=== PATIENT | male | born 1950 | race Caucasian/White ===

== ENCOUNTER 2020-05-14 08:35 | Outpatient (CLI) | payer MEDICARE, MEDICAID, SELFPAY ==
--- NOTE | ~2020-05-14 | XR_ITS ---
EXAMINATION: XR shoulder RT min 2V EXAM DATE: 05/14/2020 09:22 INDICATION: No known recent injury provided at this time. Pain of the right shoulder. TECHNIQUE: The following right shoulder projections obtained: frontal projection with internal rotati on, frontal projection with external rotation, Grashey, and scapular Y view (4+ views). Correlation i s made to chest x-ray 07/22/2014. FINDINGS: There is somewhat linear opacity rating out from the right hilum, could be atelectasis or c ancer. This is new compared to 2013. Dedicated chest x-ray is indicated for better evaluation. There is moderate right glenohumeral, mild acromioclavicular primary osteoarthritis. There are no acu te fractures or dislocations identified. There is no subcutaneous gas. The soft tissue is unremarka ble. There are no radiopaque foreign bodies. IMPRESSION: 1. Right upper lobe mass or atelectasis; recommend PA/lateral chest x-rays. 2. Moderate right glenohumeral osteoarthritis. Reviewed, dictated and finalized at location A.
--- NOTE | ~2020-05-14 | XR_ITS ---
EXAMINATION: XR shoulder LT min 2V EXAM DATE: 05/14/2020 09:22 INDICATION: Left shoulder pain. TECHNIQUE: The following left shoulder projections obtained: frontal projection with internal rotatio n, frontal projection with external rotation, Grashey, and scapular Y view (4+ views). There is no p rior study for comparison. FINDINGS: No evidence of left shoulder rotator cuff calcific tendinosis. There is severe glenohumer al, mild acromioclavicular joint primary osteoarthritis. There are no acute fractures or dislocations identified. There is no subcutaneous gas. The soft tissue is unremarkable. There are no radiopaq ue foreign bodies. IMPRESSION: Severe left glenohumeral osteoarthritis. Reviewed, dictated and finalized at location A.
== END 2020-05-14 08:36 | disposition home or self-care (01) ==
LOC: CHSIMG 08:40
PROVIDERS: PCP Family Medicine; Visit Provider Family Medicine
DX: M25.512 Pain in left shoulder (principal); M25.511 Pain in right shoulder
CPT/HCPCS: 73030

== ENCOUNTER 2020-06-09 07:48 | Outpatient (CLI) | payer MEDICARE, MEDICAID, SELFPAY ==
--- NOTE | ~2020-06-09 | XR_ITS ---
XR shoulder RT min 2V DATE: 06/09/2020 08:13 INDICATION: Right shoulder pain. No known injury. TECHNIQUE: 3 views COMPARISON: 05/14/2020 right shoulder FINDINGS: Diffuse osteopenia. There is severe osteoarthritis at the right glenohumeral joint. No fracture or dislocation, periostea l reaction or bone destruction of the right shoulder is evident. There is dextroscoliosis and degenerative change of the thoracic spine. There are patchy right mid and bilateral lower lung zone infiltrates and/or atelectasis. IMPRESSION: Patchy right mid and bilateral lower lung infiltrates and/atelectasis Severe osteoarthritis at right glenohumeral joint Diffuse osteopenia Reviewed, dictated and finalized at location A. IMPRESSION: Patchy right mid and bilateral lower lung infiltrates and/atelectas is Severe osteoarthritis at right glenohumeral joint Diffuse osteopenia
== END 2020-06-09 07:49 | disposition home or self-care (01) ==
LOC: CHSIMG 07:50
PROVIDERS: PCP Family Medicine; Visit Provider Orthopaedic Surgery
DX: M25.511 Pain in right shoulder (principal)
CPT/HCPCS: 73030

== ENCOUNTER 2020-07-31 10:15 | Emergency (ER) | payer MEDICARE, MEDICAID, SELFPAY ==
--- NOTE | ~2020-07-31 | XR_ITS ---
XR chest 1V portable DATE: 07/31/2020 11:42 INDICATION: Shortness of breath TECHNIQUE: Portable AP chest on 07/31/2020 at 1133 hours COMPARISON: 09/19/2017 AP and lateral chest FINDINGS: There is patchy infiltrate in the right mid and lower lung zone and left lower lung zones s uggesting bilateral pneumonia. Emphysematous changes are noted. Heart size is likely within normal range. There is a probable hiatal hernia. Severe osteoarthritic change at the glenohumeral joints. Diffuse osteopenia. There is dextroscoliosis and degenerative change of the thoracic spine. IMPRESSION: Patchy infiltrates of right mid and both lower lung zones Emphysema Reviewed, dictated and finalized at location B. TAL BUSINESS ANALYST
--- NOTE | ~2020-07-31 | XR_ITS ---
XR cervical spine 1V DATE: 07/31/2020 11:42 INDICATION: Neck pain TECHNIQUE: Lateral and swimmer views only COMPARISON: None FINDINGS: Limited incomplete examination; C7 is not adequately demonstrated. There is diffuse osteopenia. C1 and C2 are normally aligned and the odontoid process appears normal on this single lateral view. N ormal alignment through C6. There is mild degenerative disc disease at C2-3. There is severe degenerative disc disease at C3-4, C5-C6 and mild degenerative disc changes at C4-5. IMPRESSION: Limited incomplete examination. Reviewed, dictated and finalized at location B. LITATION ASSISTANT
[2020-07-31 10:15] VITALS: BP 164/82; PULSE 112; RESP 20; TEMP 37.2; O2SAT 93
--- NOTE | 2020-07-31 10:28 | ECG_ITS ---
Measurements Intervals [place] Rate: 116 P: 29 MS: 184 QRS: -11 QRSD: 101 T: 5 QT: 316 QTc: 439 Interpretive Statements SINUS TACHYCARDIA BORDERLINE AV CONDUCTION DELAY POSSIBLE LEFT ATRIAL ENLARGEMENT INCOMPLETE RIGHT BUNDLE BRANCH BLOCK LEFT VENTRICULAR HYPERTROPHY MINIMAL Q WAVES- ANTEROLAT/HIGH LAT LEADS BORDERLINE ST-T WAVE ABNORMALITY- INFERIOR LEADS BASELINE WANDER- I, II, III, AVF, V5-V6 ABNORMAL ECG Electronically Signed On 07-31-2020 10:59:08 CONSULTING SOLUTION MANAGER by Rusty Mixon D.O.
[2020-07-31 10:57] LABS: Hematocrit 35.5 % (37.0-46.0); Hemoglobin 12.4 g/dL (12.4-15.3); Mean Corpuscular HGB Conc 34.9 g/dL (32.0-36.0); Mean Corpuscular Hemoglobin 30.3 pg (27.0-31.0); Mean Corpuscular Volume 86.8 fL (78.0-102.0); Mean Platelet Volume 8.7 fl (8.7-11.0); Platelet Count Result 208 K/mm3 (150-420); Red Blood Count 4.09 M/mm3 (4.70-6.10); Red Cell Distribution Width 15.5 % (11.6-14.4); White Blood Count 13.9 K/mm3 (4.8-10.8)
[2020-07-31 11:13] LABS: Alanine Aminotransferase 18 U/L (16-63); Albumin Level 3.3 g/dL (3.4-5.0); Alkaline Phosphatase 98 U/L (46-116); Anion Gap 9 mmol/L (8-16); Aspartate Amino Transferase 10 U/L (15-37); Bilirubin,Total 0.5 mg/dL (0.00-1.00); Blood Urea Nitrogen 16 mg/dL (7-18); Calcium 9.3 mg/dL (8.5-10.1); Carbon Dioxide 23 mmol/L (21-32); Chloride 95 mmol/L (98-108); Estimated CRCL calculation 63 ml/min; Estimated Glomerular Filt Rate > 60; Glucose 119 mg/dL (70-99); Osmolality Calculated 266 mOsm/kg (285-295); Potassium 4.4 mmol/L (3.5-5.1); Sodium 127 mmol/L (136-145)
[2020-07-31 11:16] LABS: Lactic Acid Reflex 0.7 mmol/L (0.4-2.0)
[2020-07-31 11:21] LABS: SARS-CoV-2 Ag Negative (Negative)
[2020-07-31 11:21] LABS: Band Neutrophils Percent 0 % (0-6); Basophils Absolute Manual 0.13 K/mm3 (0-0.1); Basophils Percent Manual 1 % (0-1); Lymphocytes Absolute Manual 0.69 K/mm3 (1.1-4.5); Lymphocytes Percent Manual 5 % (18-44); Monocytes Absolute Manual 2.78 K/mm3 (0.1-0.90); Monocytes Percent Manual 20 % (3-9); Neutrophils Absolute Manual 10.28 K/mm3 (1.3-6.7); Neutrophils Percent Manual 74 % (46-73); Platelet Estimate Adequate (Adequate); Total Cells Counted 100
[2020-07-31 11:24] LABS: Total Protein 8.5 g/dL (6.4-8.2)
--- NOTE | 2020-07-31 12:17 | ED.FALL ---
HPI - Fall General Chief Complaint: Back Pain/Injury Stated Complaint: back pain Time Seen by Provider: 07/31/20 10:17 Source: patient Mode of arrival: EMS Limitations: no limitations History of Present Illness HPI Narrative: this is 70-year-old gentleman that presents via EMS to the emergency department after he fell out of bed earlier this morning complaining of some shoulder discomfort but has good range of motion in upper and lower extremities there is currently no back pain after assessment currently no shoulder pain no neck pain although he presented a cervical collar, the patient not short of breath there is no fever or chills blood pressure 164/82, has a history of Parkinson's disease denies any pain currently with no shortness of breath no fever chills no chest pain no dysuria no abdominal pain no flank pain or hematuria. MD complaint: fall Onset (ago): hour(s) Fall from: out of bed Fall witnessed: no Place fall occurred: [facility] Loss of consciousness: none Prolonged down time: no Related Data Home Medications Medication Instructions Recorded Confirmed acetaminophen 325 mg tablet 325 mg PO Q6H PRN 06/09/20 07/31/20 alendronate 70 mg tablet 70 mg PO WEEKLY 06/09/20 07/31/20 amitriptyline 100 mg tablet 100 mg PO DAILY tablet 06/09/20 07/31/20 bismuth subsalicylate 262 mg/15 mL 524 mg PO Q1H PRN 06/09/20 07/31/20 oral suspension buspirone 10 mg tablet 10 mg PO BID 06/09/20 07/31/20 calcium carbonate 600 mg (1,500 1 tablet PO DAILY 06/09/20 07/31/20 mg)-vitamin D3 400 unit tablet cholecalciferol (vitamin D3) 25 25 mcg PO DAILY 06/09/20 07/31/20 mcg (1,000 unit) capsule docusate sodium 100 mg capsule 100 mg PO DAILY 06/09/20 07/31/20 guaifenesin 100 mg/5 mL oral liquid 200 mg PO Q4H PRN 06/09/20 hydroxyzine HCl 25 mg tablet 25 mg PO TID PRN tablet 06/09/20 07/31/20 loratadine 10 mg capsule 10 mg PO DAILY 06/09/20 07/31/20 lorazepam 1 mg tablet 1 mg PO TID PRN 06/09/20 07/31/20 magnesium citrate 150 ml PO DAILY 06/09/20 07/31/20 montelukast 10 mg tablet 10 mg PO DAILY 06/09/20 07/31/20 omeprazole 20 mg tablet,delayed 20 mg PO DAILY 06/09/20 07/31/20 release oxybutynin chloride 5 mg tablet 5 mg PO DAILY 06/09/20 07/31/20 potassium chloride 20 mEq oral 20 meq PO DAILY 06/09/20 07/31/20 packet quetiapine 200 mg tablet 200 mg PO BID 06/09/20 07/31/20 risperidone 4 mg tablet 4 mg PO DAILY 06/09/20 07/31/20 risperidone 4 mg tablet 8 mg PO DAILY tablet 06/09/20 07/31/20 sennosides 8.6 mg capsule 8.6 mg PO DAILY 06/09/20 07/31/20 tamsulosin 0.4 mg capsule 0.4 mg PO DAILY 06/09/20 07/31/20 umeclidinium 62.5 mcg/actuation 1 inh INHALATION DAILY 06/09/20 07/31/20 blister powder for inhalation Allergies Allergy/AdvReac Type Severity Reaction Status Date / Time No Known Allergies Allergy Verified 06/09/20 08:31 Review of Systems Review of Systems: All systems reviewed & are unremarkable except as noted in HPI and below PMFSH Past Medical History Medical History Bilateral shoulder region arthritis Social History Social History Smoking status: Unknown if ever smoked Exam Const: General: no acute distress Orientation/consciousness: patient oriented x3 HENMT: Head: normal to inspection Eyes: Conjunctivae: conjunctivae normal Pupils: Equal, round and reactive pupils present Neck: Neck: normal visual inspection Chest: Chest palpation & inspection: normal inspection of the chest and abnormal inspection of the chest Resp: Effort & Inspection: normal respiratory effort Auscultation: diminished lung sounds Cardio: Rate: regular rate GI: Auscultation: normal bowel sounds Neuro: General: patient oriented x3, moves all extremities, no meningeal signs and no focal motor deficits Psych: Appearance: grossly normal Mental Status: mental status grossly normal Affect: normal affect
[2020-07-31] MEDS: AZITHROMYCIN 250 MG TABLET 500 MG (12:25)
[2020-07-31 12:50] VITALS: PULSE 22
--- NOTE | 2020-07-31 12:50 | PC.NURSE ---
DISCHARGE INSTRUCTIONS GIVEN TO EDDIE
== END 2020-07-31 12:50 | disposition home or self-care (01) ==
PROVIDERS: Emergency Provider Emergency Medicine; PCP Family Medicine
DX: E87.1 Hypo-osmolality and hyponatremia (principal); J18.9 Pneumonia, unspecified organism; Z20.828 Contact with and (suspected) exposure to other viral communicable diseases
CPT/HCPCS: 36415; 71045; 72020; 80053; 83605; 85025; 87040; 87077; 87186; 87426; 93005; 96365; 99283; 99284; A9270; J0696

== ENCOUNTER 2020-08-01 10:23 | Inpatient (IN) | payer MEDICARE, MEDICAID, SELFPAY ==
--- NOTE | ~2020-08-01 | XR_ITS ---
XR chest 1V portable DATE: 08/01/2020 10:50 INDICATION: Cough. Generalized weakness. TECHNIQUE: Portable AP chest on 08/01/2020 at 1054 hours COMPARISON: 07/31/2020 AP chest FINDINGS: Patchy infiltrates are noted in the right mid and both lower lung zones, stable or mildly i mproved since 07/31/2020. There is minimal if any pleural effusion. No pneumothorax. Heart size is not optimally evaluated on AP projection because of magnification. There appears to be a large hiatal hernia. There is severe osteoarthritic change at the glenohumeral joints. Diffuse osteopenia. IMPRESSION: Stable or mildly improved right mid and bilateral lower lung infiltrate since 07/31/2020 Reviewed, dictated and finalized at location B. OPEDICS NURSE IMPRESSION: Stable or mildly improved right mid and bilateral lower lung infilt rate since 07/31/2020
--- NOTE | 2020-08-01 10:26 | ECG_ITS ---
Measurements Intervals [place] Rate: 98 P: 23 MO: 184 QRS: 9 QRSD: 106 T: 32 QT: 371 QTc: 474 Interpretive Statements SINUS RHYTHM INCOMPLETE RIGHT BUNDLE BRANCH BLOCK MINIMAL Q WAVES- HIGH LATERAL LEADS BORDERLINE ECG Electronically Signed On 08-01-2020 11:13:16 FOUNDRY SUPERINTENDANT by Rusty Mixon D.O.
[2020-08-01 10:30] VITALS: BP 104/63; PULSE 99; RESP 18; TEMP 36.5; O2SAT 93
[2020-08-01 11:09] LABS: Basophils Absolute Auto 0.04 K/mm3 (0.00-0.10); Basophils Percent Auto 0.4 % (0.0-1.0); Hematocrit 32.7 % (37.0-46.0); Immature Granulocyte Absolute 0.05 K/mm3 (0.00-0.00); Immature Granulocyte Percent A 0.5 % (0.0-0.0); Lymphocytes Absolute Auto 0.49 K/mm3 (1.10-4.50); Lymphocytes Percent Auto 4.6 % (18.0-42.0); Mean Corpuscular HGB Conc 33.6 g/dL (32.0-36.0); Mean Corpuscular Hemoglobin 29.5 pg (27.0-31.0); Mean Corpuscular Volume 87.7 fL (78.0-102.0); Monocytes Absolute Auto 1.45 K/mm3 (0.10-0.90); Monocytes Percent Auto 13.6 % (2.0-11.0); Neutrophils Absolute Auto 8.6 K/mm3 (1.7-7.2); Neutrophils Percent Auto 80.9 % (50.0-70.0); Platelet Count Result 150 K/mm3 (150-420); Red Blood Count 3.73 M/mm3 (4.70-6.10); Red Cell Distribution Width 15.9 % (11.6-14.4); White Blood Count 10.6 K/mm3 (4.8-10.8)
[2020-08-01 11:17] LABS: Partial Thromboplastin Time 32.7 SEC (23.90-30.70); Prothrombin Time 11.5 Seconds (9.50-12.10)
[2020-08-01 11:18] LABS: Influenza Control Valid (Valid)
[2020-08-01 11:19] LABS: Lactic Acid Reflex 1.5 mmol/L (0.4-2.0)
[2020-08-01 11:26] LABS: Alanine Aminotransferase 20 U/L (16-63); Albumin Level 2.7 g/dL (3.4-5.0); Alkaline Phosphatase 74 U/L (46-116); Anion Gap 9 mmol/L (8-16); Aspartate Amino Transferase 20 U/L (15-37); Bilirubin,Total 0.3 mg/dL (0.00-1.00); Blood Urea Nitrogen 25 mg/dL (7-18); Calcium 8.8 mg/dL (8.5-10.1); Carbon Dioxide 22 mmol/L (21-32); Chloride 99 mmol/L (98-108); Estimated Glomerular Filt Rate 55; Glucose 123 mg/dL (70-99); Osmolality Calculated 275 mOsm/kg (285-295); Potassium 3.7 mmol/L (3.5-5.1); Sodium 130 mmol/L (136-145); Total Protein 7.4 g/dL (6.4-8.2); Troponin I 22.7 ng/L (0.00-60.4)
--- NOTE | 2020-08-01 11:27 | ED.RECABL ---
HPI - Recheck/Abnormal Lab/Rx General Chief Complaint: Recheck/Abnormal Lab/Rx Stated Complaint: 70 YO male is a resident of [facility] who is being sent back to ER for further evaluation after he was in ER yesterday. he was diagnosed w/ CAP and started on Levaquin but his Blood Cx x 2 have come back positive for Gm + Cocci in clusters. His PCP requesting further evaluation. Time Seen by Provider: 08/01/20 10:24 Related Data Home Medications Medication Instructions Recorded Confirmed acetaminophen 325 mg tablet 325 mg PO Q6H PRN 06/09/20 08/01/20 alendronate 70 mg tablet 70 mg PO WEEKLY 06/09/20 08/01/20 amitriptyline 100 mg tablet 100 mg PO DAILY tablet 06/09/20 08/01/20 bismuth subsalicylate 262 mg/15 mL 524 mg PO Q1H PRN 06/09/20 08/01/20 oral suspension buspirone 10 mg tablet 10 mg PO BID 06/09/20 08/01/20 calcium carbonate 600 mg (1,500 1 tablet PO DAILY 06/09/20 08/01/20 mg)-vitamin D3 400 unit tablet cholecalciferol (vitamin D3) 25 25 mcg PO DAILY 06/09/20 08/01/20 mcg (1,000 unit) capsule docusate sodium 100 mg capsule 100 mg PO DAILY 06/09/20 08/01/20 guaifenesin 100 mg/5 mL oral liquid 200 mg PO Q4H PRN 06/09/20 08/01/20 hydroxyzine HCl 25 mg tablet 25 mg PO TID PRN tablet 06/09/20 08/01/20 loratadine 10 mg capsule 10 mg PO DAILY 06/09/20 08/01/20 lorazepam 1 mg tablet 1 mg PO TID PRN 06/09/20 08/01/20 magnesium citrate 150 ml PO DAILY 06/09/20 08/01/20 montelukast 10 mg tablet 10 mg PO DAILY 06/09/20 08/01/20 omeprazole 20 mg tablet,delayed 20 mg PO DAILY 06/09/20 08/01/20 release oxybutynin chloride 5 mg tablet 5 mg PO DAILY 06/09/20 08/01/20 potassium chloride 20 mEq oral 20 meq PO DAILY 06/09/20 08/01/20 packet quetiapine 200 mg tablet 200 mg PO BID 06/09/20 08/01/20 risperidone 4 mg tablet 4 mg PO DAILY 06/09/20 08/01/20 risperidone 4 mg tablet 8 mg PO DAILY tablet 06/09/20 08/01/20 sennosides 8.6 mg capsule 8.6 mg PO DAILY 06/09/20 08/01/20 tamsulosin 0.4 mg capsule 0.4 mg PO DAILY 06/09/20 08/01/20 umeclidinium 62.5 mcg/actuation 1 inh INHALATION DAILY 06/09/20 08/01/20 blister powder for inhalation Allergies Allergy/AdvReac Type Severity Reaction Status Date / Time No Known Allergies Allergy Verified 06/09/20 08:31 Review of Systems Review of Systems: All systems reviewed & are unremarkable except as noted in HPI and below Constitutional: Constitutional: Reports chills, Reports fever(s) and Reports weakness Eyes: Eyes: Reports no additional eye complaints ENT: Reports system reviewed and no additional complaints, except as documented Cardiovascular: Cardiovascular: Reports no additional cardiovascular complaints Respiratory: Respiratory: Reports no additional respiratory complaints and Reports cough Gastrointestinal: Gastrointestinal: Reports no additional gastrointestinal complaints Genitourinary: Genitourinary: Reports no additional male genitourinary complaints Musculoskeletal: Musculoskeletal: Reports no additional musculoskeletal complaints Integumentary/Breasts: Skin/Breast: Reports system reviewed and no additional complaints, except as docu Neurologic: Reports system reviewed and no additional complaints, except as documented and Reports weakness Psychiatric: Psychiatric: Reports no additional psychiatric complaints Endocrine: Endocrine: Reports no additional endocrine complaints Hematologic/Lymphatic: Hematologic/Lymphatic: Reports no additional hematologic/lymphatic complaints Allergic/Immunologic: Allergic/Immunologic: Reports no additional allergic/immunologic complaints [facility] Past Medical History Medical History Bilateral shoulder region arthritis GERD (gastroesophageal reflux disease) Osteoporosis Seasonal allergies Slow transit constipation Urinary incontinence due to benign prostatic hyperplasia Social History Social History Smoking stat
[2020-08-01 11:43] VITALS: BP 102/79; PULSE 98; O2SAT 96
[2020-08-01 11:45] LABS: CRP 18.5 mg/dL (0.0-0.9)
[2020-08-01 12:45] LABS: SARS-CoV-2 Ag Negative (Negative)
[2020-08-01 13:08] VITALS: BP 120/75; PULSE 98; RESP 17; O2SAT 96
--- NOTE | 2020-08-01 13:36 | PM.IMHP ---
H&P: HPI History of Present Illness Date/Time: 08/01/20 13:36 Chief Complaint: Shortness of breath Narrative: Rolando Kate is a 70 year old male Review of Systems Review of Systems: All systems reviewed & are unremarkable except as noted in HPI and below (10 point system review) [facility] Past Medical History Medical History Bilateral shoulder region arthritis GERD (gastroesophageal reflux disease) Osteoporosis Seasonal allergies Slow transit constipation Urinary incontinence due to benign prostatic hyperplasia Social History Social History Smoking packs per day: 2 Smoking cigarettes per day: 40.0 Years smoked: 20 Smoking pack-years: 40.00 Smoking status: Current every day smoker Tobacco type: cigarettes Second hand tobacco smoke exposure: Yes Alcohol intake: unknown Substance use: former Gender identity (if verbalized by the patient): Male Sexual Orientation (if Verbalized by the Patient): Straight or Heterosexual Spiritual care concerns: No Meds Home Medications and Allergies Home Medications Medication Instructions Recorded Confirmed Type acetaminophen 325 mg tablet 325 mg PO Q6H PRN 06/09/20 08/01/20 History alendronate 70 mg tablet 70 mg PO WEEKLY 06/09/20 08/01/20 History amitriptyline 100 mg tablet 100 mg PO DAILY tablet 06/09/20 08/01/20 History bismuth subsalicylate 262 mg/15 mL 524 mg PO Q1H PRN 06/09/20 08/01/20 History oral suspension buspirone 10 mg tablet 10 mg PO BID 06/09/20 08/01/20 History calcium carbonate 600 mg (1,500 1 tablet PO DAILY 06/09/20 08/01/20 History mg)-vitamin D3 400 unit tablet cholecalciferol (vitamin D3) 25 25 mcg PO DAILY 06/09/20 08/01/20 History mcg (1,000 unit) capsule docusate sodium 100 mg capsule 100 mg PO DAILY 06/09/20 08/01/20 History guaifenesin 100 mg/5 mL oral liquid 200 mg PO Q4H PRN 06/09/20 08/01/20 History hydroxyzine HCl 25 mg tablet 25 mg PO TID PRN tablet 06/09/20 08/01/20 History loratadine 10 mg capsule 10 mg PO DAILY 06/09/20 08/01/20 History lorazepam 1 mg tablet 1 mg PO TID PRN 06/09/20 08/01/20 History magnesium citrate 150 ml PO DAILY 06/09/20 08/01/20 History montelukast 10 mg tablet 10 mg PO DAILY 06/09/20 08/01/20 History omeprazole 20 mg tablet,delayed 20 mg PO DAILY 06/09/20 08/01/20 History release oxybutynin chloride 5 mg tablet 5 mg PO DAILY 06/09/20 08/01/20 History potassium chloride 20 mEq oral 20 meq PO DAILY 06/09/20 08/01/20 History packet quetiapine 200 mg tablet 200 mg PO BID 06/09/20 08/01/20 History risperidone 4 mg tablet 4 mg PO DAILY 06/09/20 08/01/20 History risperidone 4 mg tablet 8 mg PO DAILY tablet 06/09/20 08/01/20 History sennosides 8.6 mg capsule 8.6 mg PO DAILY 06/09/20 08/01/20 History tamsulosin 0.4 mg capsule 0.4 mg PO DAILY 06/09/20 08/01/20 History umeclidinium 62.5 mcg/actuation 1 inh INHALATION DAILY 06/09/20 08/01/20 History blister powder for inhalation levofloxacin 500 mg PO DAILY 7 Days #7 tablet 07/31/20 08/01/20 Rx Allergies Allergy/AdvReac Type Severity Reaction Status Date / Time No Known Allergies Allergy Verified 06/09/20 08:31 Vital Signs Vital Signs - 24 hr 08/01/20 10:30 08/01/20 11:43 08/01/20 13:08 Temperature 97.7 F Pulse Rate 99 98 98 Respiratory Rate 18 17 Blood Pressure 104/63 102/79 120/75 Pulse Oximetry 93 96 96 Exam Narrative: Exam Narrative: GENERAL: This is a well-nourished, well-developed patient, in no apparent distress. HEAD: normocephalic, atraumatic. EYES: PERRL. Sclera clear/white. Vision is grossly intact. EARS: External ears normal, auditory canals clear and without drainage, TMs normal without perforation. Hearing grossly intact. NOSE: External nose normal with no obvious nasal discharge, nares without redness, no rhinorrhea. THROAT: Mucous membranes moist, posterior pharynx clear. NECK: Neck supple,
[2020-08-01 13:41] VITALS: BP 97/63; PULSE 101; RESP 22; TEMP 36.2; O2SAT 89
[2020-08-01 14:03] VITALS: BMI 25.4
[2020-08-01] MEDS: QUEtiapine FUMARATE 100 MG TABLET 200 MG PO (17:50)
[2020-08-01] MEDS: ENOXAPARIN 40 MG/0.4 ML SYRINGE SUB-Q (17:50)
[2020-08-01] MEDS: guaiFENesin 12 HR 600 MG TABCR 1200 MG PO (20:58)
[2020-08-01] MEDS: busPIRone HCL 5 MG TABLET 10 MG PO (20:59)
[2020-08-01] MEDS: hydrOXYzine pamoate 25 MG CAPSULE PO (20:59)
[2020-08-01] MEDS: risperiDONE 1 MG TABLET 4 MG PO (20:59)
[2020-08-01] MEDS: DOCUSATE SODIUM 100 MG CAPSULE PO (21:01)
[2020-08-01] MEDS: SODIUM CHLORIDE 0.9% IV 1,000 ML 100 ML IV CONT (21:32)
--- NOTE | 2020-08-01 21:33 | PC.NURSE ---
attempted to get vs, pt states i'd rather you didnt , hob up, feet elevated, fluilds running, nasal canula found in bed under pt's back, 02 reapplied
[2020-08-02 01:00] VITALS: BP 132/89; PULSE 108; RESP 24; TEMP 37.8; O2SAT 93
--- NOTE | 2020-08-02 01:15 | PC.NURSE ---
Upon entering pt. room for assessment, pt. awake and alert only x1 to name. Pt. unable to comprehend use of call light and is agreeable to all questions asked. Pt. noted to be in home clothing at this time and noted incontinent of urine, soaked to pad. Pt. undressed and placed in gown, cleaned and bathed and adult diaper placed on pt. Pt. difficult to roll, will not assist and c/o pain everywhere . Pt. reoriented to surroundings c call wright in reach.
[2020-08-02 01:58] VITALS: TEMP 37.8
[2020-08-02] MEDS: ACETAMINOPHEN 325 MG TABLET 650 MG PO (01:58)
[2020-08-02 03:02] VITALS: TEMP 37.2
[2020-08-02 05:40] LABS: Hematocrit 30.4 % (37.0-46.0); Hemoglobin 10.4 g/dL (12.4-15.3); Mean Corpuscular HGB Conc 34.2 g/dL (32.0-36.0); Mean Corpuscular Hemoglobin 29.6 pg (27.0-31.0); Mean Corpuscular Volume 86.6 fL (78.0-102.0); Mean Platelet Volume 9.4 fl (8.7-11.0); Platelet Count Result 100 K/mm3 (150-420); Red Blood Count 3.51 M/mm3 (4.70-6.10); Red Cell Distribution Width 15.6 % (11.6-14.4); White Blood Count 7.8 K/mm3 (4.8-10.8)
[2020-08-02 06:01] LABS: Partial Thromboplastin Time 35.7 SEC (23.90-30.70); Prothrombin Time 11.4 Seconds (9.50-12.10)
[2020-08-02 06:09] LABS: Alanine Aminotransferase 33 U/L (16-63); Albumin Level 2.5 g/dL (3.4-5.0); Alkaline Phosphatase 66 U/L (46-116); Anion Gap 10 mmol/L (8-16); Aspartate Amino Transferase 33 U/L (15-37); Bilirubin,Total 0.2 mg/dL (0.00-1.00); Blood Urea Nitrogen 19 mg/dL (7-18); Calcium 7.7 mg/dL (8.5-10.1); Carbon Dioxide 20 mmol/L (21-32); Chloride 96 mmol/L (98-108); Estimated CRCL calculation 78 ml/min; Estimated Glomerular Filt Rate > 60; Glucose 104 mg/dL (70-99); Osmolality Calculated 264 mOsm/kg (285-295); Potassium 3.5 mmol/L (3.5-5.1); Sodium 126 mmol/L (136-145); Total Protein 6.3 g/dL (6.4-8.2)
[2020-08-02] MEDS: SODIUM CHLORIDE 0.9% IV 1,000 ML 100 ML IV CONT (06:11)
[2020-08-02 06:12] LABS: Band Neutrophils Percent 1 % (0-6); Lymphocytes Absolute Manual 1.01 K/mm3 (1.1-4.5); Lymphocytes Percent Manual 13 % (18-44); Neutrophils Absolute Manual 5.53 K/mm3 (1.3-6.7); Neutrophils Percent Manual 70 % (46-73)
[2020-08-02 06:13] LABS: Basophils Percent Manual 0 % (0-1); Eosinophils Percent Manual 0 % (1-6); Monocytes Absolute Manual 1.24 K/mm3 (0.1-0.90); Monocytes Percent Manual 16 % (3-9); Platelet Estimate Adequate (Adequate)
[2020-08-02 08:00] VITALS: BP 112/78; PULSE 97; RESP 18; TEMP 37.4; O2SAT 93
--- NOTE | 2020-08-02 08:39 | WPDPN ---
Progress Note: A&P Assessment and Plan (1) Community acquired pneumonia: Qualifiers: Laterality: right Lung location: lower lobe of lung Qualified Code(s): J18.9 - Pneumonia, unspecified organism Code(s): J18.9 - Pneumonia, unspecified organism Status: Acute Assessment and Plan: Patient will discharge home with Bactrim DS x2 tabs twice daily for 4 weeks Blood culture with growth of MSSA, patient refused a repeat blood culture Chest x-ray indicates Stable or mildly improved right mid and bilateral lower lung infiltrate since 07/31/2020 Patient shortness of breath have resolved (2) Urinary incontinence due to benign prostatic hyperplasia: Code(s): N40.1 - Benign prostatic hyperplasia with lower urinary tract symptoms; N39.498 - Other specified urinary incontinence Status: Acute Assessment and Plan: Continue home medication (3) GERD (gastroesophageal reflux disease): Code(s): K21.9 - Gastro-esophageal reflux disease without esophagitis Status: Acute Assessment and Plan: Continue pantoprazole (4) Seasonal allergies: Code(s): J30.2 - Other seasonal allergic rhinitis Status: Acute Assessment and Plan: Stable (5) Slow transit constipation: Code(s): K59.01 - Slow transit constipation Status: Acute Assessment and Plan: Will continue to docusate in MiraLAX (6) Osteoporosis: Code(s): M81.0 - Age-related osteoporosis without current pathological fracture Status: Acute Assessment and Plan: Continue home medication (7) Sepsis: Code(s): A41.9 - Sepsis, unspecified organism Status: Acute Assessment and Plan: As evidenced by hypotensive, tachycardia, and tachypnea Secondary to CAP ans MSSA Patient refused IV antibiotic therapy he will discharge home AMA with Bactrim DS x2 twice daily for 1 month Started IV fluid Blood culture growth of staph aureus (8) Hyponatremia: Code(s): E87.1 - Hypo-osmolality and hyponatremia Status: Acute Assessment and Plan: Patient sodium near baseline Continue 1 to 5 L fluid restriction at [facility] I will assume the patient has chronic hyponatremia Review of Systems Review of Systems: All systems reviewed & are unremarkable except as noted in HPI and below (10 point system review) Exam Narrative: Exam Narrative: GENERAL: This is a well-nourished, well-developed patient, in no apparent distress. Uncooperative HEAD: normocephalic, atraumatic. EYES: PERRL. Sclera clear/white. Vision is grossly intact. EARS: External ears normal, auditory canals clear and without drainage, TMs normal without perforation. Hearing grossly intact. NOSE: External nose normal with no obvious nasal discharge, nares without redness, no rhinorrhea. THROAT: Mucous membranes moist, posterior pharynx clear. NECK: Neck supple, non-tender without lymphadenopathy, masses or thyromegaly. CARDIOVASCULAR: Regular rate and rhythm without murmurs, gallops, or rubs. RESPIRATORY: Clear to auscultation. Breath sounds equal bilaterally. No wheezes, rales, or rhonchi. GASTROINTESTINAL: Abdomen soft, non-tender, nondistended. Bowel sounds are active. No hepato-splenomegaly, or palpable masses. No guarding. SKIN: warm, intact with no suspicious lesions or rash, good texture and turgor. NEURO: awake, alert, and oriented to person, place and time. There were no obvious focal neurologic abnormalities. Steady gait EXTREMITIES: Normal range of motion. No edema. No calf tenderness. Negative Homans sign bilaterally. BACK: Nontender without deformity or crepitance. No flank tenderness. Psychological: Agitated Objective Data Meds/Results Radiology Results: ITS Impressions Chest X-Ray 08/01/20 10:51 IMPRESSION: Stable or mildly improved right mid and bilateral lower lung infiltrate since 07/31/2020 Subjective Date/time seen: 08/02/2020 08:39 no
[2020-08-02] MEDS: POTASSIUM CHLORIDE 20 MEQ PACKET (FOR LIQUID) PO (08:48)
[2020-08-02] MEDS: QUEtiapine FUMARATE 100 MG TABLET 200 MG PO ×2 (08:48→16:57)
[2020-08-02] MEDS: TAMSULOSIN HCL 0.4 MG CAPSULE PO (08:49)
[2020-08-02] MEDS: MONTELUKAST SODIUM 10 MG TABLET PO (08:49)
[2020-08-02] MEDS: LORATADINE 10 MG TABLET PO (08:49)
[2020-08-02] MEDS: PANTOPRAZOLE SOD SESQUIHYDRATE 20 MG TAB PO (08:49)
[2020-08-02] MEDS: DOCUSATE SODIUM 100 MG CAPSULE PO ×2 (08:49→16:57)
[2020-08-02] MEDS: busPIRone HCL 5 MG TABLET 10 MG PO ×2 (08:50→20:32)
[2020-08-02] MEDS: OXYBUTYNIN CHLORIDE 5 MG TABLET PO (08:50)
[2020-08-02] MEDS: AMITRIPTYLINE HCL 25 MG TABLET 100 MG PO (08:50)
[2020-08-02] MEDS: FLUTICASONE/UMECLIDIN/VILANTER 100-62.5-25 MCG ELLIPTA 1 PUFF INHALATION (08:51)
[2020-08-02] MEDS: guaiFENesin 12 HR 600 MG TABCR 1200 MG PO ×2 (08:51→20:32)
[2020-08-02] MEDS: CALCIUM/VITAMIN D 250 MG TABLET 1 TABLET PO (08:51)
[2020-08-02] MEDS: risperiDONE 1 MG TABLET 4 MG PO ×2 (08:57→20:32)
[2020-08-02] MEDS: SODIUM CHLORIDE 0.9% IV 1,000 ML 75 ML IV CONT (12:41)
[2020-08-02 16:00] VITALS: BP 137/97; PULSE 84; RESP 18; TEMP 36.9; O2SAT 94
[2020-08-02] MEDS: ENOXAPARIN 40 MG/0.4 ML SYRINGE SUB-Q (16:58)
[2020-08-02 18:58] LABS: SARS-CoV-2 RNA PCR Negative
[2020-08-02] MEDS: hydrOXYzine pamoate 25 MG CAPSULE PO (20:32)
[2020-08-02 23:19] LABS: Add Urine Microscopic? YES; Appearance Urine Clear (Clear); Bilirubin Urine Negative (Negative); Blood Urine Negative (Negative); Color Urine Yellow (Yellow); Glucose Urine UA Negative (Negative); Ketones Urine Negative (Negative); Leukocyte Esterase Ur Negative LEU/UL (Negative); Nitrate Urine Negative (Negative); Protein Urine Trace (Negative); pH Urine 6.5 (5.0-8.0)
[2020-08-02 23:26] LABS: Bacteria Urine Trace /hpf; RBC Urine None seen /hpf (0-2); Squamous Epithelial Cell Urine Rare /hpf (Few); WBC Urine None seen /hpf (0-3)
[2020-08-02 23:51] VITALS: BP 136/99; PULSE 100; RESP 20; TEMP 36.6; O2SAT 93
[2020-08-03] MEDS: SODIUM CHLORIDE 0.9% IV 1,000 ML 75 ML IV CONT (04:23)
[2020-08-03] MEDS: CALCIUM/VITAMIN D 250 MG TABLET 1 TABLET PO (07:09)
[2020-08-03 07:15] LABS: Anion Gap 10 mmol/L (8-16); Blood Urea Nitrogen 9 mg/dL (7-18); Calcium 7.4 mg/dL (8.5-10.1); Carbon Dioxide 20 mmol/L (21-32); Chloride 93 mmol/L (98-108); Estimated CRCL calculation 93 ml/min; Estimated Glomerular Filt Rate > 60; Glucose 116 mg/dL (70-99); Osmolality Calculated 255 mOsm/kg (285-295); Potassium 3.2 mmol/L (3.5-5.1); Sodium 123 mmol/L (136-145)
[2020-08-03 08:00] VITALS: BP 135/72; PULSE 79; RESP 18; TEMP 37.2; O2SAT 97
--- NOTE | 2020-08-03 08:00 | WPDPN ---
Progress Note: A&P Assessment and Plan (1) Community acquired pneumonia: Qualifiers: Laterality: right Lung location: lower lobe of lung Qualified Code(s): J18.9 - Pneumonia, unspecified organism Code(s): J18.9 - Pneumonia, unspecified organism Status: Acute Assessment and Plan: Continue Levaquin and vancomycin Blood culture with gram-positive cocci in clusters Will continue to monitor culture Chest x-ray indicates Stable or mildly improved right mid and bilateral lower lung infiltrate since 07/31/2020 Supplementary oxygen not needed (2) Urinary incontinence due to benign prostatic hyperplasia: Code(s): N40.1 - Benign prostatic hyperplasia with lower urinary tract symptoms; N39.498 - Other specified urinary incontinence Status: Acute Assessment and Plan: Continue home medication (3) GERD (gastroesophageal reflux disease): Code(s): K21.9 - Gastro-esophageal reflux disease without esophagitis Status: Acute Assessment and Plan: Continue pantoprazole (4) Seasonal allergies: Code(s): J30.2 - Other seasonal allergic rhinitis Status: Acute Assessment and Plan: Stable (5) Slow transit constipation: Code(s): K59.01 - Slow transit constipation Status: Acute Assessment and Plan: Will continue to docusate in MiraLAX (6) Osteoporosis: Code(s): M81.0 - Age-related osteoporosis without current pathological fracture Status: Acute Assessment and Plan: Continue home medication (7) Sepsis: Code(s): A41.9 - Sepsis, unspecified organism Status: Acute Assessment and Plan: As evidenced by hypotensive, tachycardia, and tachypnea Secondary to CAP Patient will receive antibiotics vancomycin and Levaquin Started IV fluid Blood culture pending (8) Hyponatremia: Code(s): E87.1 - Hypo-osmolality and hyponatremia Status: Acute Assessment and Plan: Patient sodium level is worsening since admission Will stop IV fluid due to hyperhydration and diluted sodium level Patient is on a 1 to 5 L fluid restriction at [facility] care I will assume the patient has chronic hyponatremia Will continue to monitor Review of Systems Review of Systems: All systems reviewed & are unremarkable except as noted in HPI and below (10 point system review) Exam Narrative: Exam Narrative: GENERAL: This is a well-nourished, well-developed patient, in no apparent distress. HEAD: normocephalic, atraumatic. EYES: PERRL. Sclera clear/white. Vision is grossly intact. EARS: External ears normal, auditory canals clear and without drainage, TMs normal without perforation. Hearing grossly intact. NOSE: External nose normal with no obvious nasal discharge, nares without redness, no rhinorrhea. THROAT: Mucous membranes moist, posterior pharynx clear. NECK: Neck supple, non-tender without lymphadenopathy, masses or thyromegaly. CARDIOVASCULAR: Regular rate and rhythm without murmurs, gallops, or rubs. RESPIRATORY: Coarse breath sounds GASTROINTESTINAL: Abdomen soft, non-tender, nondistended. Bowel sounds are active. No hepato-splenomegaly, or palpable masses. No guarding. SKIN: warm, intact with no suspicious lesions or rash, good texture and turgor. NEURO: awake, alert, and oriented to person, place and time. There were no obvious focal neurologic abnormalities. Steady gait EXTREMITIES: Normal range of motion. No edema. No calf tenderness. Negative Homans sign bilaterally. BACK: Nontender without deformity or crepitance. No flank tenderness. Objective Data Vital Signs Vital Signs: Vital Signs - 24 hr 08/02/20 16:00 08/02/20 23:51 Temperature 98.5 F 97.8 F Pulse Rate 84 100 Respiratory Rate 18 20 Blood Pressure 137/97 H 136/99 H Pulse Oximetry 94 93 Intake/Output Intake/Output: Intake & Output 07/31/20 08/01/20 08/02/20 08/03/20 23:59 23:59 23:59 23:59 Intake Total 400 18
[2020-08-03] MEDS: risperiDONE 1 MG TABLET 4 MG PO ×2 (08:36→20:22)
[2020-08-03] MEDS: TAMSULOSIN HCL 0.4 MG CAPSULE PO (08:36)
[2020-08-03] MEDS: QUEtiapine FUMARATE 100 MG TABLET 200 MG PO ×2 (08:36→17:37)
[2020-08-03] MEDS: OXYBUTYNIN CHLORIDE 5 MG TABLET PO (08:36)
[2020-08-03] MEDS: AMITRIPTYLINE HCL 25 MG TABLET 100 MG PO (08:37)
[2020-08-03] MEDS: MONTELUKAST SODIUM 10 MG TABLET PO (08:37)
[2020-08-03] MEDS: busPIRone HCL 5 MG TABLET 10 MG PO ×2 (08:37→20:21)
[2020-08-03] MEDS: LORATADINE 10 MG TABLET PO (08:38)
[2020-08-03] MEDS: FLUTICASONE/UMECLIDIN/VILANTER 100-62.5-25 MCG ELLIPTA 1 PUFF INHALATION (08:38)
[2020-08-03] MEDS: guaiFENesin 12 HR 600 MG TABCR 1200 MG PO ×2 (08:38→20:21)
[2020-08-03] MEDS: PANTOPRAZOLE SOD SESQUIHYDRATE 20 MG TAB PO (08:38)
[2020-08-03] MEDS: DOCUSATE SODIUM 100 MG CAPSULE PO ×2 (08:38→17:37)
[2020-08-03] MEDS: POTASSIUM CHLORIDE 20 MEQ TABLET PO (10:17)
[2020-08-03 11:02] LABS: Vancomycin Trough 1.1 ug/mL (10.0-15.0)
[2020-08-03 15:51] VITALS: BP 115/79; PULSE 77; RESP 20; TEMP 36.9; O2SAT 94
[2020-08-03] MEDS: ENOXAPARIN 40 MG/0.4 ML SYRINGE SUB-Q (17:37)
[2020-08-03] MEDS: hydrOXYzine pamoate 25 MG CAPSULE PO (20:21)
[2020-08-04] VITALS: BP 135/86; PULSE 72; RESP 18; TEMP 36.7; O2SAT 94
--- NOTE | 2020-08-04 | PC.NURSE ---
pt incontinent in bed, pt cleaned, gown changed, and complete linen changed
[2020-08-04 05:55] LABS: Hemoglobin 13.8 g/dL (12.4-15.3); Mean Corpuscular HGB Conc 35.4 g/dL (32.0-36.0); Mean Corpuscular Volume 84.8 fL (78.0-102.0); Mean Platelet Volume 10.4 fl (8.7-11.0); Platelet Count Result 113 K/mm3 (150-420); Red Cell Distribution Width 15.6 % (11.6-14.4); White Blood Count 4.1 K/mm3 (4.8-10.8)
[2020-08-04 06:07] LABS: Alanine Aminotransferase 33 U/L (16-63); Albumin Level 2.4 g/dL (3.4-5.0); Alkaline Phosphatase 69 U/L (46-116); Anion Gap 11 mmol/L (8-16); Aspartate Amino Transferase 18 U/L (15-37); Bilirubin,Total 0.3 mg/dL (0.00-1.00); Blood Urea Nitrogen 6 mg/dL (7-18); Calcium 7.9 mg/dL (8.5-10.1); Carbon Dioxide 23 mmol/L (21-32); Chloride 98 mmol/L (98-108); Estimated CRCL calculation 99 ml/min; Estimated Glomerular Filt Rate > 60; Glucose 104 mg/dL (70-99); Osmolality Calculated 271 mOsm/kg (285-295); Potassium 3.4 mmol/L (3.5-5.1); Sodium 132 mmol/L (136-145); Total Protein 6.7 g/dL (6.4-8.2)
[2020-08-04 08:00] VITALS: BP 116/85; PULSE 76; RESP 18; TEMP 36.8; O2SAT 93
--- NOTE | 2020-08-04 09:35 | PM.DS ---
DS: Admitting Diagnosis Admitting Diagnosis Admitting Diagnosis: CAP, septicemia DS: Discharge Diagnosis Discharge Diagnosis (1) Community acquired pneumonia: Qualifiers: Laterality: right Lung location: lower lobe of lung Qualified Code(s): J18.9 - Pneumonia, unspecified organism Code(s): J18.9 - Pneumonia, unspecified organism Status: Acute Assessment and Plan: Patient will discharge home with Bactrim DS x2 tabs twice daily for 4 weeks Blood culture with growth of MSSA, patient refused a repeat blood culture Chest x-ray indicates Stable or mildly improved right mid and bilateral lower lung infiltrate since 07/31/2020 Patient shortness of breath have resolved (2) Urinary incontinence due to benign prostatic hyperplasia: Code(s): N40.1 - Benign prostatic hyperplasia with lower urinary tract symptoms; N39.498 - Other specified urinary incontinence Status: Acute Assessment and Plan: Continue home medication (3) GERD (gastroesophageal reflux disease): Code(s): K21.9 - Gastro-esophageal reflux disease without esophagitis Status: Acute Assessment and Plan: Continue pantoprazole (4) Seasonal allergies: Code(s): J30.2 - Other seasonal allergic rhinitis Status: Acute Assessment and Plan: Stable (5) Slow transit constipation: Code(s): K59.01 - Slow transit constipation Status: Acute Assessment and Plan: Will continue to docusate in MiraLAX (6) Osteoporosis: Code(s): M81.0 - Age-related osteoporosis without current pathological fracture Status: Acute Assessment and Plan: Continue home medication (7) Sepsis: Code(s): A41.9 - Sepsis, unspecified organism Status: Acute Assessment and Plan: As evidenced by hypotensive, tachycardia, and tachypnea Secondary to CAP ans MSSA Patient refused IV antibiotic therapy he will discharge home AMA with Bactrim DS x2 twice daily for 1 month Started IV fluid Blood culture growth of staph aureus (8) Hyponatremia: Code(s): E87.1 - Hypo-osmolality and hyponatremia Status: Acute Assessment and Plan: Patient sodium near baseline Continue 1 to 5 L fluid restriction at [facility] care I will assume the patient has chronic hyponatremia DS: Summary Hospital Course Hospital Course: This is a 73-year-old that was admitted to our hospital for CAP. Patient was transported to this facility via EMS from a custodial. Patient's throat and blood culture indicated MSSA. Called infectious disease for recommendation it was recommended the patient discharged with Ancef 2 g every 8 hours via IV. Patient will have to be placed in a residential for IV treatment. Patient refused to be placed. Patient was informed the dangers of not being treated for MSSA and the high mortality rate. Patient noted he did not care, he was going back back home to [facility]. I have had a conversation with the patient as well as the nursing staff and Dr. Goins concerning the importance of receiving IV therapy for his infection. Patient refused treatment. He did allow us to complete an echo before signing out AMA and refused repeat blood culture. I will discharge patient with Bactrim DS 2 tabs twice daily for 1 month. Patient is encouraged to follow-up with his primary care physician. We will call patient's primary care physician Dr. Lees to update him on patient's condition This document was completed by using [employer] Direct speech recognition software, therefore aws solution architect variances may occur. Despite proofreading, typographical errors may also occur. Time Spent with Patient Time attestation: Total time spent providing and/or coordinating discharge services: Exam Narrative: Exam Narrative: GENERAL: This is a well-nourished, well-developed patient, in no apparent distress. Uncooperative HEAD: normocephalic, atraumatic
[2020-08-04] MEDS: risperiDONE 1 MG TABLET 4 MG PO (09:52)
[2020-08-04] MEDS: QUEtiapine FUMARATE 100 MG TABLET 200 MG PO (09:52)
[2020-08-04] MEDS: AMITRIPTYLINE HCL 25 MG TABLET 100 MG PO (09:52)
[2020-08-04] MEDS: POTASSIUM CHLORIDE 20 MEQ TABLET PO (09:53)
[2020-08-04] MEDS: TAMSULOSIN HCL 0.4 MG CAPSULE PO (09:53)
[2020-08-04] MEDS: guaiFENesin 12 HR 600 MG TABCR 1200 MG PO (09:53)
[2020-08-04] MEDS: LORATADINE 10 MG TABLET PO (09:53)
[2020-08-04] MEDS: PANTOPRAZOLE SOD SESQUIHYDRATE 20 MG TAB PO (09:53)
[2020-08-04] MEDS: MONTELUKAST SODIUM 10 MG TABLET PO (09:53)
[2020-08-04] MEDS: CALCIUM/VITAMIN D 250 MG TABLET 1 TABLET PO (09:53)
[2020-08-04] MEDS: OXYBUTYNIN CHLORIDE 5 MG TABLET PO (09:53)
[2020-08-04] MEDS: DOCUSATE SODIUM 100 MG CAPSULE PO (09:53)
[2020-08-04] MEDS: busPIRone HCL 5 MG TABLET 10 MG PO (09:53)
[2020-08-04] MEDS: FLUTICASONE/UMECLIDIN/VILANTER 100-62.5-25 MCG ELLIPTA 1 PUFF INHALATION (09:54)
[2020-08-04] MEDS: POTASSIUM CHLORIDE 20 MEQ TABLET 40 MEQ PO (10:01)
--- NOTE | 2020-08-04 10:50 | ECHO_ITS ---
Patient Info Name: Rolando Kate Age: 70 years : 1950 Gender: Male Ht: 73 in Wt: 192 lbs BSA: 2.13 m2 HR: 76 bpm BP: 116 / 85 mmHg Heart Rhythm: Sinus Rhythm Technical Quality: Fair Exam Date: 08/04/2020 11:00 AM Exam Location: [facility] Patient Status: Inpatient Admit Date: 08/01/2020 Staff Ordering Physician: Josephine Calix Corridor Redevelopment Manager: Rosemary Ceron RDCS Attending Provider: Chito Pena MD Referring Physician: Yogi TOMPKINS; Exam Type: CA echo doppler color flow Study Info Indications I33.9 - Acute and subacute endocarditis, unspecified Complete two-dimensional, color flow and Doppler transthoracic echocardiogram is performed. Strain analysis performed. History/Risk Factors Hypertension: No Dyslipidemia: No Obesity: No Diabetes Mellitus: No Tobacco Use: Current - Every Day If Any Current, Tobacco Type: Cigarettes If Current - Every Day \T\ Cigarettes, Amount: Heavy Tobacco Use (>=10/day) Deep Vein Thrombosis (DVT): None Dialysis: None Frailty Scale (CSHA): 4: Vulnerable Summary 1. Complete two-dimensional, color flow and Doppler transthoracic echocardiogram is performed. 2. Per script manager, patient is uncooperative for test. 3. Left ventricular chamber dimension is normal. 4. Left ventricular systolic function is normal, estimated at 65-70%. 5. There is mildly increased left ventricular wall thickness. 6. The left ventricular diastolic function is grade I diastolic dysfunction. 7. E/e' 11 is mildly elevated. 8. Global longitudinal strain is normal at -18.2%. 9. Left atrial chamber dimension is mildly enlarged. 10. Cannot rule out aortic valve vegetation as this is a possibility but not well seen in parasternal long axis view. 11. There is mild aortic valve sclerosis. 12. There is trace aortic valve regurgitation. 13. No pulmonary hypertension, estimated pulmonary arterial systolic pressure is 23 mmHg. 14. The aortic root size at the sinus of Valsalva is borderline dilated at 4.2 cm. Recommendations * Smoking cessation counseling is recommended for this patient. Left Ventricle E/e' 11 is mildly elevated. Global longitudinal strain is normal at -18.2%. Per script manager, patient is uncooperative for test. Left ventricular chamber dimension is normal. Left ventricular systolic function is normal, estimated at 65-70%. There is mildly increased left ventricular wall thickness. The left ventricular diastolic function is grade I diastolic dysfunction. Right Ventricle Right ventricular chamber dimension is normal. Right ventricular systolic function is normal. Left Atria Left atrial chamber dimension is mildly enlarged. Right Atria Right atrial chamber dimension is normal. Aortic Valve The aortic valve is trileaflet, however, the valve is not well seen.. Cannot rule out aortic valve vegetation as this is a possibility but not well seen in parasternal long axis view. There is mild aortic valve sclerosis. There is no aortic valve stenosis. There is trace aortic valve regurgitation. Pulmonic Valve There is no pulmonic regurgitation. No pulmonic valve vegetation visualized. Mitral Valve There is no mitral valve stenosis. There is no mitral valve regurgitation. No mitral valve vegetation visualized. Tricuspid Valve There is no tricuspid valve regurgitation. No pulmonary hypertension, estimated pulmonary arterial systolic pressure is 23 mmHg. No tri
--- NOTE | 2020-08-05 02:49 | PM.EVENT ---
Event Note Event Note Event Note: For 08/04/20: patient is upset because he is unable to smoke while he is at the hospital. I offered him nicotine patch as or what ever took to keep him here but patient states that he wants to go home and does not want IV therapy. I explained that he would not be hospitalized for the duration of the IV therapy and that would, perhaps, in a few days be able to arrange it so he get therapy at his home. When told him that the blood infection that was diagnosed here was very serious and may result in serious injury or if he does not have proper treatment. Patient states he understands that and refuses treatment. I have examined the patient and reviewed the chart. I discussed the patient's care with Rose Calix APN and agree with her assessment and plan.
== END 2020-08-04 13:55 | disposition left against medical advice (07) | DRG 871 ==
LOC: CHSED 12:56 → CHS2ND 13:17
PROVIDERS: Family Medicine; Nurse Practitioner; Admitting Provider Family Medicine; Emergency Provider Family Medicine; PCP Family Medicine; Visit Provider Family Medicine
DX: A41.01 Sepsis due to Methicillin susceptible Staphylococcus aureus (principal); R78.81 Bacteremia; J18.9 Pneumonia, unspecified organism; E87.1 Hypo-osmolality and hyponatremia; I35.8 Other nonrheumatic aortic valve disorders; K21.9 Gastro-esophageal reflux disease without esophagitis; K59.01 Slow transit constipation; M81.0 Age-related osteoporosis without current pathological fracture; N39.498 Other specified urinary incontinence; M19.019 Primary osteoarthritis, unspecified shoulder; N40.1 Benign prostatic hyperplasia with lower urinary tract symptoms; J30.2 Other seasonal allergic rhinitis; F17.210 Nicotine dependence, cigarettes, uncomplicated
CPT/HCPCS: 36415; 71045; 80048; 80053; 80202; 81001; 83605; 84484; 85025; 85027; 85610; 85730; 86140; 87081; 87426; 87635; 87804; 87880; 93005; 93306; 96365; 96367; 99283; 99285; A9270; C9803; J1650; J1956; J3370; J7030; U0003

== ENCOUNTER 2020-08-18 07:15 | Emergency (ER) | payer MEDICARE, MEDICAID, SELFPAY ==
--- NOTE | ~2020-08-18 | XR_ITS ---
XR chest 1V 08/18/2020 07:55 Indication: Pneumonia and cough Procedure: AP upright view of the chest Comparison: Comparison to multiple prior studies sequentially, with oldest reviewed study dated 12/2017. Findings: There is patchy bilateral consolidation in the right upper lung and peripheral aspect of th e left mid and bilateral lower lung zones. The lungs are hyperinflated which is consistent with, but not diagnostic of chronic obstructive pulmonary disease. No pneumothorax. No acute osseous abnormalit y. Impression: 1: Patchy bilateral airspace consolidation which pneumonia, atelectasis and/or chronic fibrosis. Reviewed, dictated and finalized at location A. DIRECTOR Impression: 1: Patchy bilateral airspace consolidation which pneumonia, atelectasis and/or chronic fibrosis.
[2020-08-18 07:15] VITALS: BP 102/78; PULSE 103; RESP 20; TEMP 36.8; O2SAT 91
[2020-08-18 07:20] VITALS: O2SAT 95
--- NOTE | 2020-08-18 07:38 | ECG_ITS ---
Measurements Intervals [place] Rate: 96 P: 23 OK: 172 QRS: 4 QRSD: 116 T: 14 QT: 362 QTc: 459 Interpretive Statements SINUS RHYTHM INCOMPLETE RIGHT BUNDLE BRANCH BLOCK VOLTAGE CRITERIA FOR LVH MINIMAL Q WAVES- HIGH LATERAL LEADS BASELINE WANDER- I, II, AVR, V4-V6 BORDERLINE ECG Electronically Signed On 08-18-2020 8:17:32 [employer] by Rusty Mixon D.O.
[2020-08-18 08:07] LABS: Hematocrit 29.1 % (37.0-46.0); Mean Corpuscular HGB Conc 34.4 g/dL (32.0-36.0); Mean Corpuscular Hemoglobin 29.7 pg (27.0-31.0); Mean Corpuscular Volume 86.4 fL (78.0-102.0); Mean Platelet Volume 8.8 fl (8.7-11.0); Platelet Count Result 159 K/mm3 (150-420); Red Blood Count 3.37 M/mm3 (4.70-6.10); Red Cell Distribution Width 16.4 % (11.6-14.4)
[2020-08-18 08:22] LABS: BNP 20 pg/mL (0-100)
[2020-08-18 08:24] LABS: Alanine Aminotransferase 130 U/L (16-63); Albumin Level 2.9 g/dL (3.4-5.0); Alkaline Phosphatase 74 U/L (46-116); Anion Gap 10 mmol/L (8-16); Aspartate Amino Transferase 89 U/L (15-37); Bilirubin,Total 0.1 mg/dL (0.00-1.00); Blood Urea Nitrogen 19 mg/dL (7-18); Calcium 8.4 mg/dL (8.5-10.1); Carbon Dioxide 23 mmol/L (21-32); Chloride 96 mmol/L (98-108); Estimated Glomerular Filt Rate > 60; Glucose 105 mg/dL (70-99); Osmolality Calculated 270 mOsm/kg (285-295); Sodium 129 mmol/L (136-145); Total Protein 7.3 g/dL (6.4-8.2)
[2020-08-18 08:30] LABS: Troponin I 15.3 ng/L (0.00-60.4)
[2020-08-18 08:37] LABS: Band Neutrophils Percent 2 % (0-6); Basophils Percent Manual 0 % (0-1); Eosinophils Percent Manual 0 % (1-6); Lymphocytes Absolute Manual 0.64 K/mm3 (1.1-4.5); Lymphocytes Percent Manual 16 % (18-44); Monocytes Absolute Manual 1.08 K/mm3 (0.1-0.90); Monocytes Percent Manual 27 % (3-9); Neutrophils Absolute Manual 2.28 K/mm3 (1.3-6.7); Neutrophils Percent Manual 55 % (46-73); Total Cells Counted 100
[2020-08-18 08:38] LABS: Platelet Estimate Adequate (Adequate)
--- NOTE | 2020-08-18 08:54 | ED.WEAKNESS ---
HPI - Weakness General Chief complaint: Weakness Stated complaint: ambulance Time Seen by Provider: 08/18/20 07:30 Source: patient Mode of arrival: other (He came in with EMS on strecher and then got up and walked to bed. ) Limitations: clinical condition History of Present Illness HPI Narrative: Patient complains of feeling weak at the home where he lives. He wonders if he needs more antibiotics for the pneumonia. MD Complaint: generalized weakness Onset (ago): day(s) (last 2 days) Duration: intermittent Location: generalized Migration: none Severity: moderate Relieving factors: none Exacerbating factors: none Context: recent illness Related Data Home Medications Medication Instructions Recorded Confirmed acetaminophen 325 mg tablet 325 mg PO Q6H PRN 06/09/20 08/18/20 alendronate 70 mg tablet 70 mg PO WEEKLY 06/09/20 08/18/20 amitriptyline 100 mg tablet 100 mg PO DAILY tablet 06/09/20 08/18/20 buspirone 10 mg tablet 10 mg PO BID 06/09/20 08/18/20 calcium carbonate 600 mg (1,500 1 tablet PO DAILY 06/09/20 08/18/20 mg)-vitamin D3 400 unit tablet cholecalciferol (vitamin D3) 25 25 mcg PO DAILY 06/09/20 08/18/20 mcg (1,000 unit) capsule docusate sodium 100 mg capsule 100 mg PO DAILY 06/09/20 08/18/20 guaifenesin 100 mg/5 mL oral liquid 200 mg PO Q4H PRN 06/09/20 08/18/20 hydroxyzine HCl 25 mg tablet 25 mg PO TID PRN tablet 06/09/20 08/18/20 lorazepam 1 mg tablet 1 mg PO TID PRN 06/09/20 08/18/20 montelukast 10 mg tablet 10 mg PO DAILY 06/09/20 08/18/20 omeprazole 20 mg tablet,delayed 20 mg PO DAILY 06/09/20 08/18/20 release oxybutynin chloride 5 mg tablet 5 mg PO DAILY 06/09/20 08/18/20 potassium chloride 20 mEq oral 20 meq PO DAILY 06/09/20 08/18/20 packet quetiapine 200 mg tablet 200 mg PO BID 06/09/20 08/18/20 risperidone 4 mg tablet 4 mg PO DAILY 06/09/20 08/18/20 risperidone 4 mg tablet 8 mg PO DAILY tablet 06/09/20 08/18/20 sennosides 8.6 mg capsule 8.6 mg PO DAILY 06/09/20 08/18/20 umeclidinium 62.5 mcg/actuation 1 inh INHALATION DAILY 06/09/20 08/18/20 blister powder for inhalation Allergies Allergy/AdvReac Type Severity Reaction Status Date / Time No Known Allergies Allergy Verified 06/09/20 08:31 Review of Systems Constitutional: Constitutional: Reports no additional constitutional complaints Eyes: Eyes: Reports no additional eye complaints ENT: Reports system reviewed and no additional complaints, except as documented Cardiovascular: Cardiovascular: Reports no additional cardiovascular complaints Respiratory: Respiratory: Reports no additional respiratory complaints Gastrointestinal: Gastrointestinal: Reports no additional gastrointestinal complaints Musculoskeletal: Musculoskeletal: Reports no additional musculoskeletal complaints Integumentary/Breasts: Skin/Breast: Reports system reviewed and no additional complaints, except as docu Neurologic: Reports system reviewed and no additional complaints, except as documented Psychiatric: Psychiatric: Reports no additional psychiatric complaints Endocrine: Endocrine: Reports no additional endocrine complaints Hematologic/Lymphatic: Hematologic/Lymphatic: Reports no additional hematologic/lymphatic complaints Allergic/Immunologic: Allergic/Immunologic: Reports no additional allergic/immunologic complaints PMFSH Past Medical History Medical History Bilateral shoulder region arthritis GERD (gastroesophageal reflux disease) Osteoporosis Schizophrenia Seasonal allergies Slow transit constipation Urinary incontinence due to benign prostatic hyperplasia Family History Family History Other No significant past medical history Social History Social History Smoking packs per day: 2 Smoking cigarettes per day: 40.0 Years smoked: 20 Smoking pack-years: 40.00 Smoking status: Cur
[2020-08-18] MEDS: SODIUM CHLORIDE 0.9% IV 1,000 ML 250 ML IV CONT (09:29)
[2020-08-18] MEDS: AZITHROMYCIN 250 MG TABLET 500 MG PO (10:59)
--- NOTE | 2020-08-18 11:25 | PC.NURSE ---
PT STATES HE DOES NOT WANT TO BE ADMITTED BECAUSE HE WILL NOT BE ABLE TO SMOKE. PT IS UP AND AMBULATES WITH WALKER - AWAITING DISPOSITION
[2020-08-18 12:00] VITALS: O2SAT 100
[2020-08-18 13:04] VITALS: BP 100/69; PULSE 92; RESP 15; O2SAT 99
== END 2020-08-18 13:10 | disposition left against medical advice (07) ==
PROVIDERS: Emergency Provider Emergency Medicine; PCP Family Medicine
DX: J18.9 Pneumonia, unspecified organism (principal); K21.9 Gastro-esophageal reflux disease without esophagitis; M81.0 Age-related osteoporosis without current pathological fracture; F17.200 Nicotine dependence, unspecified, uncomplicated
CPT/HCPCS: 36415; 71045; 80053; 83880; 84484; 85025; 93005; 96361; 96365; 99284; A9270; J0696; J7030